=== PATIENT | male | born 1995 | race Caucasian/White ===

== ENCOUNTER 2018-10-08 12:28 | Emergency (ER) | payer OTHER, BC ==
[2018-10-08] MEDS ORDERED: Pantoprazole 40 MG Vial IVPUSH ONE (12:29)
[2018-10-08] MEDS ORDERED: Ondansetron 4 MG/2 ML SDV IVPUSH ONE (12:29)
[2018-10-08] MEDS ORDERED: Sodium Chloride 0.9% 1,000 ML IV ONE (12:29)
[2018-10-08] MEDS ORDERED: Albuterol/Ipratropium 3.0-0.5 MG/3 ML Neb Soln NEB ONE (12:30)
[2018-10-08] MEDS ORDERED: Promethazine 25 MG/ML SDV IM ONE (12:45)
[2018-10-08] MEDS ORDERED: Sodium Chloride 0.9% 20 ML ONE (12:45)
[2018-10-08 13:03] LABS: CHLORIDE,CL 106 mmol/L (98-107); SODIUM,NA 143 mmol/L (136-148)
--- NOTE | 2018-10-08 13:20 | CT ---
EXAMINATION: Non contrast CT head. Coronal and sagittal reformats. HISTORY: Pain FINDINGS: No evidence of intra or extra axial hemorrhage, mass, midline shift, hydrocephalus or edema. No hypoattenuation changes in the major vascular territories to suggest acute infarct. No abnormal intracranial calcifications are detected. No evidence of substantial vascular calcifications. Paranasal sinuses and mastoid air cells are well aerated without substantial findings. Pituitary fossa appears unremarkable. Orbits and globes are symmetric. Calvarium is intact. No evidence of skull fracture. IMPRESSION: No acute intracranial findings.
--- NOTE | 2018-10-08 13:28 | EDM.PDOC ---
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 he had some episodic dizzy spells while he was working that did not bother him much he continued to well on metal generally steal no exotic alloys, initially he and his employer contributed to symptoms to possibly paint fumes as the all he was welding on was painted however was dry paint and flap bar was no chemical containing pain in the patent was old and dried flaking off Ever symptoms are increased with head position generally sitting up he has significant dizziness and a right sided nystagmus consistent with benign positional vertigo Tympanums have improved with below treatment complete workup has been normal ] Review of systems: As per history of present illness and below otherwise all systems reviewed and negative. Past medical history: As per history of present illness and as reviewed below otherwise noncontributory. Surgical history: As per history of present illness and as reviewed below otherwise noncontributory. Social history: No reported history of drug or alcohol abuse. Family history: As per history of present illness and as reviewed below otherwise noncontributory. Physical exam: HEENT: Atraumatic, normocephalic, pupils reactive, negative for conjunctival pallor or scleral icterus, mucous membranes moist, throat clear, neck supple, nontender, trachea midline. Lungs: Clear to auscultation, breath sounds equal bilaterally, chest nontender. Heart: S1S2, regular, negative for clicks, rubs, or JVD. Abdomen: Soft, nondistended, nontender. Negative for masses or hepatosplenomegaly. Negative for costovertebral tenderness. Pelvis: Stable nontender. Genitourinary: Deferred. Rectal: Deferred. Extremities: Atraumatic, negative for cords or calf pain. Neurovascular unremarkable. Neuro: Awake, alert, oriented. Cranial nerves II through XII unremarkable. Cerebellum unremarkable. Motor and sensory unremarkable throughout. Exam nonfocal. Diagnostics: [CBC CMP UA troponin EKG Chest [address] no contrast ] Therapeutics: [ normal saline Proton X Zofran Phenergan ] Impression: [ B9 positional vertigo ] Definitive disposition and diagnosis as appropriate pending reevaluation and review of above. - Related Data Allergies Allergy/AdvReac Type Severity Reaction Status Date / Time No Known Allergies Allergy Verified 10/08/18 12:41 Home Meds: Home Meds . [No Known Home Meds] 10/08/18 [History] Past Medical History HEENT History: Reports: None Cardiovascular History: Reports: None Respiratory History: Reports: None Gastrointestinal History: Reports: None Genitourinary History: Reports: None Musculoskeletal History: Reports: None Neurological History: Reports: None Psychiatric History: Reports: None Endocrine/Metabolic History: Reports: None Hematologic History: Reports: None Immunologic History: Reports: None Oncologic (Cancer) History: Reports: None Dermatologic History: Reports: None - Infectious Disease History Infectious Disease History: Reports: Chicken Pox - Past Surgical History Head Surgeries/Procedures: Reports: None HEENT Surgical History: Reports: None Cardiovascular Surgical History: Reports: None Respiratory Surgical History: Reports: None GI Surgical History: Reports: None Male Surgical History: Reports: None Endocrine Surgical History: Reports: None Neurological Surgical History: Reports: None Musculoskeletal Surgical History: Reports: None Oncologic Surgical History: Reports: None Dermatological Surgical History: Reports: None Social & Family History - Family History Family Medical History: Noncontributory - Tobacco Use Smoking Status *Q: Never Smoker Second Hand Smoke Exposure: No - Caffeine Use Caffeine Use: Reports: None - Recreational Drug Use Recreational Drug Use: No ED ROS GENERAL - Review of Systems Review Of Systems: See Below ED EXAM, BURN/SMOKE INHALATION - Physical Exam Exam: See Below Course - Vital Signs Last Recorded V/S: Last Vital Signs Temp Pulse 70 10/08/18 12:38 Resp 14 10/08/18 12:38 BP 130/87 10/08/18 12:38 Pulse Ox 97 10/08/18 12:38 - Orders/Labs/Meds Orders: Active Orders 24 hr Category Date Time Status EKG Documentation Completion [RC] STAT Care 10/08/18 12:30 Active RT Aerosol Therapy [RC] ASDIRECTED Care 10/08/18 12:31 Active DRUG SCREEN, URINE [URCHEM] Stat Lab 10/08/18 12:58 Ordered UA RFX FRIDA AND CULT IF INDIC [URIN] Stat Lab 10/08/18 12:30 Ordered Labs: Laboratory Tests 10/08/18 10/08/18 Range/Units 12:30 12:30 WBC 10.51 (4.0-11.0) K/uL RBC 5.13 (4.50-5.90) M/uL Hgb 14.7 (13.0-17.0) g/dL Hct 43.5 (38.0-50.0) % MCV 84.8 (80.0-98.0) fL MCH 28.7 (27.0-32.0) pg MCHC 33.8 (31.0-37.0) g/dL RDW Std Deviation 39.0 (28.0-62.0) fl RDW Coeff of Lorraine 13 (11.0-15.0) % Plt Count 193 (150-400) K/uL MPV 10.80 (7.40-12.00) fL Neut % (Auto) 67.6 (48.0-80.0) % Lymph % (Auto) 21.1 (16.0-40.0) % [place] % (Auto) 8.3 (0.0-15.0) % Eos % (Auto) 2.7 (0.0-7.0) % Baso % (Auto) 0.3 (0.0-1.5) % Neut # (Auto) 7.1 H (1.4-5.7) K/uL Lymph # (Auto) 2.2 (0.6-2.4) K/uL [place] # (Auto) 0.9 H (0.0-0.8) K/uL Eos # (Auto) 0.3 (0.0-0.7) K/uL Baso # (Auto) 0.0 (0.0-0.1) K/uL Nucleated RBC % 0.0 /100WBC Nucleated RBCs # 0 K/uL Sodium 143 (136-148) mmol/L Potassium 3.7 (3.5-5.1) mmol/L Chloride 106 (98-107) mmol/L Carbon Dioxide 25.6 (21.0-32.0) mmol/L BUN 16 (7.0-18.0) mg/dL Creatinine 1.1 (0.8-1.3) mg/dL Est Cr Clr Drug Dosing 121.43 mL/min Estimated GFR (MDRD) > 60.0 ml/min Glucose 142 H (74-106) mg/dL Calcium 9.2 (8.5-10.1) mg/dL Total Bilirubin 0.3 (0.2-1.0) mg/dL AST 14 L (15-37) IU/L ALT 42 (14-63) IU/L Alkaline Phosphatase 71 (46-116) U/L Troponin I < 0.050 (0.000-0.056) ng/mL Total Protein 7.5 (6.4-8.2) g/dL Albumin 3.9 (3.4-5.0) g/dL Globulin 3.6 (2.6-4.0) g/dL Albumin/Globulin Ratio 1.1 (0.9-1.6) Meds: Medications Discontinued Medications Generic Name Dose Route Start Last Admin Trade Name Freq PRN Reason Stop Dose Admin Albuterol/Ipratropium 3 ml 10/08/18 12:30 10/08/18 12:47 Duoneb 3.0-0.5 Mg/3 Ml NEB 10/08/18 12:31 3 ml ONETIME ONE Administration Sodium Chloride 1,000 mls @ 999 mls/hr 10/08/18 12:29 10/08/18 12:50 Normal Saline IV 10/08/18 13:29 999 mls/hr STAT ONE Administration Sodium Chloride Confirm 10/08/18 12:45 10/08/18 12:52 Normal Saline Administered 10/08/18 12:46 Not Given Dose 20 mls @ as directed .ROUTE .STK-MED ONE Ondansetron HCl 8 mg 10/08/18 12:29 10/08/18 12:50 Zofran IVPUSH 10/08/18 12:30 8 mg ONETIME ONE Administration Pantoprazole Sodium 80 mg 10/08/18 12:29 10/08/18 12:50 Protonix Iv IVPUSH 10/08/18 12:30 80 mg .BOLUS ONE Administration Promethazine HCl 25 mg 10/08/18 12:45 10/08/18 12:51 Phenergan IM 10/08/18 12:46 25 mg ONETIME ONE Administration Departure - Departure Time of Disposition: 14:08 Disposition: Home, Self-Care 01 Condition: Good Clinical Impression: Benign positional vertigo - Discharge Information Referrals: PCP,Unknown [Primary Care Provider] - Forms: ED Department Discharge Additional Instructions: Medication as prescribed Return if symptoms persist or worsen Follow-up with primary care in 2 weeks sooner as needed [facility] [address] [place] [id number] The following information is given to patients seen in the emergency department who are being discharged to home. This information is to outline your options for follow-up care. We provide all patients seen in our emergency department with a follow-up referral. The need for follow-up, as well as the timing and circumstances, are variable depending upon the specifics of your emergency department visit. If you don't have a primary care physician on staff, we will provide you with a referral. We always advise you to contact your personal physician following an emergency department visit to inform them of the circumstance of the visit and for follow-up with them and/or the need for any referrals to a consulting specialist. The emergency department will also refer you to a specialist when appropriate. This referral assures that you have the opportunity for follow-up care with a specialist. All of these measure are taken in an effort to provide you with optimal care, which includes your follow-up. Under all circumstances we always encourage you to contact your private physician who remains a resource for coordinating your care. When calling for follow-up care, please make the office aware that this follow-up is from your recent emergency room visit. If for any reason you are refused follow-up, please contact the [facility] emergency department at and asked to speak to the emergency department charge nurse. - My Orders Last 24 Hours: My Active Orders 10/08/18 12:30 EKG Documentation Completion [RC] STAT UA RFX FRIDA AND CULT IF INDIC [URIN] Stat 10/08/18 12:31 RT Aerosol Therapy [RC] ASDIRECTED 10/08/18 12:58 DRUG SCREEN, URINE [URCHEM] Stat - Assessment/Plan Last 24 Hours: My Active Orders 10/08/18 12:30 EKG Documentation Completion [RC] STAT UA RFX FRIDA AND CULT IF INDIC [URIN] Stat 10/08/18 12:31 RT Aerosol Therapy [RC] ASDIRECTED 10/08/18 12:58 DRUG SCREEN, URINE [URCHEM] Stat
--- NOTE | 2018-10-08 13:54 | CR ---
EXAMINATION: Portable chest radiograph. HISTORY: Shortness of breath. FINDINGS: The trachea is midline. The cardiomediastinal silhouette is within normal limits. No pulmonary infiltrates, effusions or pneumothorax. Osseous structures appear unremarkable. IMPRESSION: No acute cardiopulmonary process.
== END 2018-10-08 14:40 | disposition home or self-care (01) ==
LOC: MW.ED 12:28
DX: H81.10 Benign paroxysmal vertigo, unspecified ear (principal)
CPT/HCPCS: 70450; 71045; 80053; 84484; 85025; 93005; 96361; 96372; 96374; 96375; 99285; C9113; J2405; J2550; J7040; 99283; J7620-GY